=== PATIENT | male | born 1950 | race African-American/Black ===

== ENCOUNTER 2016-03-27 23:00 | Inpatient (IN) | payer MEDICAID ==
[~2016-03-27] VITALS: Ht 188 cm; Wt 121.6 kg
[2016-03-28] MEDS ORDERED: DEXTROSE 50% SYRINGE 50 ML IV ONE (00:40)
[2016-03-28] MEDS ORDERED: DEXTROSE (50%) 50ML SYRG IV ONE ×2 (00:45→03:00)
[2016-03-28 01:21] LABS: Basophils # (auto) 0 uL; Basophils % (auto) 0.6 % (0.0-2.0); DEFINITIVE VIEW TRANSMISSION; Eosinophils # (auto) 0 uL; Eosinophils % (auto) 0.3 % (0.0-7.0); Hemoglobin 10.3 g/dL (13.5-17.5); Lymphocytes # (auto) 0.5 uL; Lymphocytes % (auto) 7.3 % (10.0-50.0); Mean Corpuscular Hemoglobin 29.6 pg (28.0-32.0); Mean Corpuscular Hgb Conc. 32.2 g/dL (32.0-36.0); Mean Corpuscular Volume 91.8 fL (80.0-100.0); Mean Platelet Volume 7.6 fL (7.4-10.4); Monocytes # (auto) 0.6 uL; Monocytes % (auto) 9.1 % (0.0-12.0); Neutrophils # (auto) 5.6 uL; Neutrophils % (auto) 82.7 % (37.0-80.0); Platelet Count (auto) 147 10^3/uL (140-450); Red Cell Distribution Width 19.9 % (11.6-16.0); White Blood Cell 6.7 10^3/uL (4.4-10.8)
[2016-03-28 01:45] LABS: Prothrombin Time 47.3 sec (9.37-12.3)
[2016-03-28 01:46] LABS: Albumin 2.9 g/dL (3.4-5.0); BUN/Creatinine Ratio 15.3; Calcium 8.2 mg/dL (8.5-10.1); Potassium 3.3 mmol/L (3.5-5.1)
[2016-03-28 01:47] LABS: INR 4.59 (0.9-1.15)
[2016-03-28 01:49] LABS: Bilirubin, Total 0.6 mg/dL (0.2-1.0); Total Protein 6.6 g/dL (6.4-8.2)
[2016-03-28 02:50] LABS: Urine Bilirubin Negative (Negative); Urine Blood Negative /uL (Negative); Urine Color Yellow (Yellow); Urine Glucose Normal (Normal); Urine Hyaline Cast MANY /lpf (0 - 2); Urine Ketone Negative (Negative); Urine Nitrite Negative (Negative); Urine RBC 1 /hpf (0 - 3); Urine Urobilinogen Normal (Negative); Urine pH 5.5 (5.0-8.0)
[2016-03-28] MEDS ORDERED: HYDROcodone-ACET 10/325MG TAB PO ONE ×2 (03:30→08:45)
[2016-03-28 03:49] LABS: B-Type Natriuretic Peptide 497.25 pg/mL (0-100); Temperature: 22.7 C (20.0-25.0)
[2016-03-28] MEDS ORDERED: OXYMETAZOLINE HCL 0.05 % NASAL SPRAY 15ML ONE (05:15)
[2016-03-28] MEDS ORDERED: ASPI81CH43 PO (08:26)
[2016-03-28] MEDS ORDERED: SIMV10TA84 PO (08:26)
[2016-03-28] MEDS ORDERED: WARF10TA PO (08:26)
[2016-03-28] MEDS ORDERED: BENA10TA3 PO (08:26)
[2016-03-28] MEDS ORDERED: CHOL20007 PO (08:27)
[2016-03-28] MEDS ORDERED: GLIP-115 PO (08:27)
[2016-03-28] MEDS ORDERED: DOCU100T15 PO (08:27)
[2016-03-28] MEDS ORDERED: FURO80TA PO (08:29)
[2016-03-28] MEDS ORDERED: TEMA30CA PO (08:29)
[2016-03-28] MEDS ORDERED: OXY10CRT PO (08:29)
[2016-03-28] MEDS ORDERED: CARV3.1240 PO (08:29)
[2016-03-28] MEDS ORDERED: PROMETHAZINE HCL 25 MG/ML 1ML IV PRN (08:30)
[2016-03-28] MEDS ORDERED: LACTULOSE 20Gm/30ML SOLN PO PRN (08:30)
[2016-03-28] MEDS ORDERED: ALLO300T2 PO (08:30)
[2016-03-28] MEDS ORDERED: ACETAMINOPHEN 500 MG TAB PO PRN (08:30)
[2016-03-28] MEDS ORDERED: DEXTROSE (50%) 50ML SYRG IV PRN (08:30)
[2016-03-28] MEDS ORDERED: LORazepam 0.5 MG TAB PO PRN (08:30)
[2016-03-28] MEDS ORDERED: METF-314 PO (08:30)
[2016-03-28] MEDS ORDERED: NITROGLYCERIN 0.4 MG SL TAB SL PRN (08:30)
[2016-03-28] MEDS ORDERED: PHYTONADIONE ORAL Susp 10 mg/10ml PO ONE (08:30)
[2016-03-28] MEDS ORDERED: MORPHINE SULF INJ 2 MG/ML SYRINGE 1ML IV PRN (08:30)
[2016-03-28] MEDS: DOCUSATE SOD 100 MG CAP PO SCH ×2 (10:00→22:23)
[2016-03-28] MEDS: CARVEDILOL 3.125 MG TAB PO SCH ×2 (10:00→22:24)
[2016-03-28] MEDS: BENAZEPRIL HCL 10 MG TAB PO SCH (10:01)
[2016-03-28] MEDS: PANTOPRAZOLE 40 MG TAB PO SCH (10:01)
[2016-03-28] MEDS: FUROSEMIDE 40 MG TAB PO SCH ×2 (10:01→17:57)
[2016-03-28] MEDS: NITROGLYCERIN 0.2MG/HR TOPICAL PATCH TD SCH (10:02)
[2016-03-28] MEDS: ALLOPURINOL 300 MG TAB PO SCH (10:02)
[2016-03-28] MEDS ORDERED: POTASSIUM CHL 20 Meq TABLET PO ONE (10:45)
[2016-03-28] MEDS: ACCU-CHEK COMFORT CURVE STRIP VI SCH ×3 (11:36→22:24)
[2016-03-28] MEDS: glipiZIDE 5 MG TAB PO SCH ×2 (11:42→17:57)
[2016-03-28] MEDS: InsuLIN REG 1unit/0.01ml Soln (100units/ml) SC SCH ×3 (11:42→22:00)
[2016-03-28 12:01] LABS: Hematocrit 32.9 % (41.0-53.0); Hemoglobin 10.1 g/dL (13.5-17.5)
[2016-03-28] MEDS: MORPHINE SULF INJ 2 MG/ML SYRINGE 1ML IV PRN ×2 (16:30→20:29)
[2016-03-28 17:12] VITALS: BP 129/71
[2016-03-28 18:35] LABS: Hematocrit 34.1 % (41.0-53.0); Hemoglobin 10.4 g/dL (13.5-17.5)
[2016-03-28] MEDS: OXYCODONE HCL 5MG TAB PO PRN (21:29)
[2016-03-28] MEDS: PRAVASTATIN SODIUM 20 MG TAB PO SCH (22:23)
[2016-03-28] MEDS: TEMAZEPAM 15 MG CAP PO PRN (22:24)
[2016-03-28 22:42] VITALS: BP 131/78
[2016-03-29] MEDS: MORPHINE SULF INJ 2 MG/ML SYRINGE 1ML IV PRN ×5 (00:40→20:58)
[2016-03-29 01:14] LABS: Hemoglobin 10.1 g/dL (13.5-17.5)
[2016-03-29 05:37] VITALS: BP 159/91
[2016-03-29] MEDS: FUROSEMIDE 40 MG TAB PO SCH ×2 (06:09→17:54)
[2016-03-29 06:12] LABS: Basophils # (auto) 0 uL; Basophils % (auto) 0.6 % (0.0-2.0); DEFINITIVE VIEW TRANSMISSION; Eosinophils # (auto) 0 uL; Eosinophils % (auto) 0.3 % (0.0-7.0); Hematocrit 33.4 % (41.0-53.0); Hemoglobin 10.2 g/dL (13.5-17.5); Lymphocytes # (auto) 0.6 uL; Lymphocytes % (auto) 7.2 % (10.0-50.0); Mean Corpuscular Hemoglobin 28.3 pg (28.0-32.0); Mean Corpuscular Hgb Conc. 30.6 g/dL (32.0-36.0); Mean Corpuscular Volume 92.3 fL (80.0-100.0); Mean Platelet Volume 8.6 fL (7.4-10.4); Monocytes # (auto) 0.9 uL; Monocytes % (auto) 10.2 % (0.0-12.0); Neutrophils % (auto) 81.7 % (37.0-80.0); Platelet Count (auto) 227 10^3/uL (140-450); White Blood Cell 8.6 10^3/uL (4.4-10.8)
[2016-03-29 06:31] LABS: Partial Thromboplastin Time 40.8 sec (22.64-33.71)
[2016-03-29 06:36] LABS: Albumin 3.3 g/dL (3.4-5.0); BUN/Creatinine Ratio 18.6; Bilirubin, Total 1.1 mg/dL (0.2-1.0); Calcium 8.8 mg/dL (8.5-10.1); Potassium 4.1 mmol/L (3.5-5.1); Total Protein 7.8 g/dL (6.4-8.2)
[2016-03-29 06:37] LABS: INR 2.01 (0.9-1.15); Prothrombin Time 20.7 sec (9.37-12.3)
[2016-03-29] MEDS: glipiZIDE 5 MG TAB PO SCH ×2 (06:47→17:54)
[2016-03-29] MEDS: ACCU-CHEK COMFORT CURVE STRIP VI SCH ×4 (06:47→21:29)
[2016-03-29] MEDS: InsuLIN REG 1unit/0.01ml Soln (100units/ml) SC SCH ×4 (06:51→21:29)
[2016-03-29 06:53] LABS: Red Cell Distribution Width 21.8 % (11.6-16.0)
[2016-03-29 07:14] LABS: Temperature: 21.2 C (20.0-25.0)
[2016-03-29 07:30] LABS: Platelet Estimate Adequate
[2016-03-29 07:31] LABS: Anisocytosis Slight; Ovalocytes FEW
[2016-03-29 08:59] VITALS: BP 107/58
[2016-03-29] MEDS: ALLOPURINOL 300 MG TAB PO SCH (10:18)
[2016-03-29] MEDS: DOCUSATE SOD 100 MG CAP PO SCH ×2 (10:18→21:28)
[2016-03-29] MEDS: NITROGLYCERIN 0.2MG/HR TOPICAL PATCH TD SCH (10:18)
[2016-03-29] MEDS: PANTOPRAZOLE 40 MG TAB PO SCH (10:18)
[2016-03-29] MEDS: CARVEDILOL 3.125 MG TAB PO SCH ×2 (10:19→21:28)
[2016-03-29] MEDS: BENAZEPRIL HCL 10 MG TAB PO SCH (10:19)
[2016-03-29 12:48] VITALS: BP 123/93
[2016-03-29 16:46] VITALS: BP 115/78
[2016-03-29] MEDS: PRO-STAT 64 30ML PO SCH (18:00)
[2016-03-29] MEDS: MULTIPLE VITAMINS W/ MINERALS TAB PO SCH (18:18)
[2016-03-29] MEDS: PRAVASTATIN SODIUM 20 MG TAB PO SCH (21:28)
[2016-03-29] MEDS: ASCORBIC ACID 500 MG TAB PO SCH (21:29)
[2016-03-29] MEDS: TEMAZEPAM 15 MG CAP PO PRN (21:30)
[2016-03-29 22:00] VITALS: BP 117/67
[2016-03-30] MEDS: MORPHINE SULF INJ 2 MG/ML SYRINGE 1ML IV PRN ×4 (04:10→20:49)
[2016-03-30 05:00] VITALS: BP 113/62
[2016-03-30] MEDS: FUROSEMIDE 40 MG TAB PO SCH ×2 (06:14→18:13)
[2016-03-30] MEDS: glipiZIDE 5 MG TAB PO SCH ×2 (06:15→18:12)
[2016-03-30] MEDS: ACCU-CHEK COMFORT CURVE STRIP VI SCH ×4 (06:15→22:40)
[2016-03-30] MEDS: InsuLIN REG 1unit/0.01ml Soln (100units/ml) SC SCH ×4 (06:15→22:00)
[2016-03-30 06:22] LABS: Basophils # (auto) 0 uL; Basophils % (auto) 0.3 % (0.0-2.0); DEFINITIVE VIEW TRANSMISSION; Eosinophils # (auto) 0 uL; Hematocrit 31.2 % (41.0-53.0); Hemoglobin 9.6 g/dL (13.5-17.5); Lymphocytes # (auto) 0.3 uL; Lymphocytes % (auto) 5.1 % (10.0-50.0); Mean Corpuscular Hgb Conc. 30.7 g/dL (32.0-36.0); Mean Corpuscular Volume 91.1 fL (80.0-100.0); Mean Platelet Volume 8.1 fL (7.4-10.4); Monocytes # (auto) 0.9 uL; Neutrophils # (auto) 5.3 uL; Neutrophils % (auto) 80.6 % (37.0-80.0); Platelet Count (auto) 196 10^3/uL (140-450); White Blood Cell 6.5 10^3/uL (4.4-10.8)
[2016-03-30 06:35] LABS: INR 1.53 (0.9-1.15); Prothrombin Time 15.8 sec (9.37-12.3)
[2016-03-30 06:38] LABS: Red Cell Distribution Width 21.4 % (11.6-16.0)
[2016-03-30 06:45] LABS: BUN/Creatinine Ratio 18.6; Bilirubin, Total 1.3 mg/dL (0.2-1.0); Calcium 8.2 mg/dL (8.5-10.1); Potassium 3.8 mmol/L (3.5-5.1); Total Protein 6.9 g/dL (6.4-8.2)
[2016-03-30] MEDS: PRO-STAT 64 30ML PO SCH ×2 (08:00→18:13)
[2016-03-30] MEDS ORDERED: MILK OF MAGNESIA 30ML SUSP PO ONE (08:30)
[2016-03-30] MEDS ORDERED: MAGNESIUM CITRATE SOLUTION 300 ML BTL PO ONE (08:45)
[2016-03-30 09:00] VITALS: BP 99/57
[2016-03-30] MEDS: MULTIPLE VITAMINS W/ MINERALS TAB PO SCH (09:18)
[2016-03-30] MEDS: PANTOPRAZOLE 40 MG TAB PO SCH (09:18)
[2016-03-30] MEDS: DOCUSATE SOD 100 MG CAP PO SCH ×2 (09:18→22:37)
[2016-03-30] MEDS: ASCORBIC ACID 500 MG TAB PO SCH ×2 (09:18→22:38)
[2016-03-30] MEDS: ALLOPURINOL 300 MG TAB PO SCH (09:18)
[2016-03-30 09:39] LABS: Platelet Estimate Adequate
[2016-03-30 09:40] LABS: Anisocytosis Slight; Ovalocytes FEW; Stomatocytes Few
[2016-03-30] MEDS: NITROGLYCERIN 0.2MG/HR TOPICAL PATCH TD SCH (10:00)
[2016-03-30 13:00] VITALS: BP 129/77
[2016-03-30] MEDS: BENAZEPRIL HCL 10 MG TAB PO SCH (16:08)
[2016-03-30] MEDS: CARVEDILOL 3.125 MG TAB PO SCH ×2 (16:08→22:37)
[2016-03-30 17:00] VITALS: BP 121/81
[2016-03-30] MEDS ORDERED: WARFARIN SODIUM 10 MG TAB PO ONE (17:00)
[2016-03-30 20:00] VITALS: BP 111/58
[2016-03-30 22:00] VITALS: BP 111/58
[2016-03-30] MEDS ORDERED: MILK OF MAGNESIA 30ML SUSP PO SCH (22:00)
[2016-03-30] MEDS: TEMAZEPAM 15 MG CAP PO PRN (22:36)
[2016-03-30] MEDS: PRAVASTATIN SODIUM 20 MG TAB PO SCH (22:36)
[2016-03-30] MEDS: OXYCODONE HCL 5MG TAB PO PRN (22:37)
[2016-03-31 05:00] VITALS: BP 111/56
[2016-03-31 05:54] LABS: Basophils # (auto) 0 uL; Basophils % (auto) 0.2 % (0.0-2.0); DEFINITIVE VIEW TRANSMISSION; Eosinophils # (auto) 0 uL; Eosinophils % (auto) 0.1 % (0.0-7.0); Hematocrit 32.5 % (41.0-53.0); Lymphocytes # (auto) 0.7 uL; Lymphocytes % (auto) 6.7 % (10.0-50.0); Mean Corpuscular Hemoglobin 28.5 pg (28.0-32.0); Mean Corpuscular Hgb Conc. 30.9 g/dL (32.0-36.0); Mean Corpuscular Volume 92.5 fL (80.0-100.0); Mean Platelet Volume 7.9 fL (7.4-10.4); Monocytes # (auto) 1.4 uL; Monocytes % (auto) 13.6 % (0.0-12.0); Neutrophils # (auto) 8.1 uL; Neutrophils % (auto) 79.4 % (37.0-80.0); Platelet Count (auto) 195 10^3/uL (140-450); White Blood Cell 10.3 10^3/uL (4.4-10.8)
[2016-03-31 05:56] LABS: Red Cell Distribution Width 21.2 % (11.6-16.0)
[2016-03-31 06:02] LABS: INR 1.54 (0.9-1.15); Prothrombin Time 15.9 sec (9.37-12.3)
[2016-03-31] MEDS: glipiZIDE 5 MG TAB PO SCH ×2 (06:51→18:27)
[2016-03-31] MEDS: ACCU-CHEK COMFORT CURVE STRIP VI SCH ×4 (06:51→22:00)
[2016-03-31] MEDS: FUROSEMIDE 40 MG TAB PO SCH ×2 (06:51→18:28)
[2016-03-31] MEDS: InsuLIN REG 1unit/0.01ml Soln (100units/ml) SC SCH ×4 (06:52→22:00)
[2016-03-31] MEDS: MORPHINE SULF INJ 2 MG/ML SYRINGE 1ML IV PRN ×4 (06:59→22:34)
[2016-03-31] MEDS: PRO-STAT 64 30ML PO SCH ×2 (08:00→18:00)
[2016-03-31 09:00] VITALS: BP 94/56
[2016-03-31] MEDS ORDERED: cefTRIAXone 1GM/50ML D5W 50 ML IV ONE (09:15)
[2016-03-31] MEDS: DOCUSATE SOD 100 MG CAP PO SCH ×2 (09:16→22:13)
[2016-03-31] MEDS: MULTIPLE VITAMINS W/ MINERALS TAB PO SCH (09:16)
[2016-03-31] MEDS: ALLOPURINOL 300 MG TAB PO SCH (09:17)
[2016-03-31] MEDS: ASCORBIC ACID 500 MG TAB PO SCH ×2 (09:17→22:10)
[2016-03-31 09:22] LABS: Anisocytosis Slight; Platelet Estimate Adequate
[2016-03-31] MEDS: OXYCODONE HCL 5MG TAB PO PRN ×2 (09:36→20:20)
[2016-03-31] MEDS: CARVEDILOL 3.125 MG TAB PO SCH ×2 (10:00→22:12)
[2016-03-31] MEDS: BENAZEPRIL HCL 10 MG TAB PO SCH (10:00)
[2016-03-31] MEDS: NITROGLYCERIN 0.2MG/HR TOPICAL PATCH TD SCH (10:00)
[2016-03-31] MEDS ORDERED: NEOMYCIN-BACITRACIN-POLYM 15GM TOP OINT TOP SCH (12:00)
[2016-03-31 13:00] VITALS: BP 81/52
[2016-03-31] MEDS: CLINDAMYCIN 300MG IV 50 ML IV SCH ×2 (13:54→22:10)
[2016-03-31] MEDS: PANTOPRAZOLE 40 MG TAB PO SCH (13:55)
[2016-03-31 17:00] VITALS: BP 98/70
[2016-03-31] MEDS ORDERED: WARFARIN SODIUM 10 MG TAB PO ONE (17:00)
[2016-03-31 22:00] VITALS: BP 114/60
[2016-03-31] MEDS: PRAVASTATIN SODIUM 20 MG TAB PO SCH (22:10)
[2016-03-31] MEDS: TEMAZEPAM 15 MG CAP PO PRN (22:11)
[2016-04-01] MEDS: MORPHINE SULF INJ 2 MG/ML SYRINGE 1ML IV PRN ×2 (02:28→06:30)
[2016-04-01 05:00] VITALS: BP 125/63
[2016-04-01 05:44] LABS: Calcium 7.9 mg/dL (8.5-10.1); Potassium 4.1 mmol/L (3.5-5.1)
[2016-04-01 05:46] LABS: BUN/Creatinine Ratio 20.7
[2016-04-01 05:49] LABS: Bilirubin, Total 1.1 mg/dL (0.2-1.0); Partial Thromboplastin Time 40.4 sec (22.64-33.71); Total Protein 7.5 g/dL (6.4-8.2)
[2016-04-01] MEDS: FUROSEMIDE 40 MG TAB PO SCH (06:09)
[2016-04-01] MEDS: CLINDAMYCIN 300MG IV 50 ML IV SCH (06:09)
[2016-04-01 06:10] LABS: INR 1.6 (0.9-1.15); Prothrombin Time 16.5 sec (9.37-12.3)
[2016-04-01] MEDS: ACCU-CHEK COMFORT CURVE STRIP VI SCH ×2 (06:45→11:30)
[2016-04-01] MEDS: glipiZIDE 5 MG TAB PO SCH (06:45)
[2016-04-01] MEDS: InsuLIN REG 1unit/0.01ml Soln (100units/ml) SC SCH ×2 (06:46→11:30)
[2016-04-01] MEDS: PRO-STAT 64 30ML PO SCH (08:00)
[2016-04-01 09:00] VITALS: BP 141/88
[2016-04-01] MEDS ORDERED: cefTRIAXone 1GM/50ML D5W 50 ML IV SCH (09:00)
[2016-04-01] MEDS: ASCORBIC ACID 500 MG TAB PO SCH (09:53)
[2016-04-01] MEDS: BENAZEPRIL HCL 10 MG TAB PO SCH (09:53)
[2016-04-01] MEDS: CARVEDILOL 3.125 MG TAB PO SCH (09:54)
[2016-04-01] MEDS: DOCUSATE SOD 100 MG CAP PO SCH (09:54)
[2016-04-01] MEDS: ALLOPURINOL 300 MG TAB PO SCH (09:54)
[2016-04-01] MEDS: PANTOPRAZOLE 40 MG TAB PO SCH (09:54)
[2016-04-01] MEDS: MULTIPLE VITAMINS W/ MINERALS TAB PO SCH (09:54)
[2016-04-01] MEDS: NITROGLYCERIN 0.2MG/HR TOPICAL PATCH TD SCH (09:55)
[2016-04-01] MEDS ORDERED: WARFARIN SODIUM 10 MG TAB PO ONE (17:00)
== END 2016-04-01 12:01 | disposition home or self-care (01) | DRG 115 ==
LOC: EDBD 23:00 → ER 23:00 → TELE 23:01 → TELE-E-ADS 03-28 15:07 → TELE-CENTR 03-28 16:22
PROVIDERS: ADMIT Internal Medicine; ATTEND Internal Medicine
PROC: 2Y41X5Z Packing of Nasal Region using Packing Material (ICD-10-PCS; principal; 2016-03-28)
DX: R04.0 Epistaxis (principal); J96.10 Chronic respiratory failure, unspecified whether with hypoxia or hypercapnia; E11.621 Type 2 diabetes mellitus with foot ulcer; I11.0 Hypertensive heart disease with heart failure; I50.9 Heart failure, unspecified; L97.509 Non-pressure chronic ulcer of other part of unspecified foot with unspecified severity; I48.91 Unspecified atrial fibrillation; J44.9 Chronic obstructive pulmonary disease, unspecified; R79.1 Abnormal coagulation profile; E87.6 Hypokalemia; I25.10 Atherosclerotic heart disease of native coronary artery without angina pectoris; F17.210 Nicotine dependence, cigarettes, uncomplicated; K59.00 Constipation, unspecified; Z98.890 Other specified postprocedural states; Z82.3 Family history of stroke; Z83.3 Family history of diabetes mellitus; Z95.1 Presence of aortocoronary bypass graft; Z79.01 Long term (current) use of anticoagulants; Z79.899 Other long term (current) drug therapy
CPT/HCPCS: 36415; 70450; 71010; 80053; 80061; 81001; 82550; 82962; 83036; 83735; 83880; 84443; 84484; 85014; 85018; 85025; 85045; 85610; 85652; 85730; 86850; 86900; 86901; 87077; 87081; 87186; 87205; 93005; 96374; 96375; J0696; J1815; J3490

== ENCOUNTER 2017-04-23 15:33 | Inpatient (IN) | payer MEDICARE, MEDICAID ==
[~2017-04-23] VITALS: Ht 193 cm; Wt 103.7 kg
[~2017-04-23 15:33] MED LIST: ALLO300T2 PO; AMI200T PO; ASPI81CH43 PO; BUDE0.5S NEB; CARV3.1240 PO; CHOL20007 PO; CYCL5TAB PO; ESOM1CAP12 PO; EZET1TAB4 PO; FLUT50SP13; FURO80TA PO; GLIP-115 PO; GLUCINJ IJ; LORA-653 PO; METF-371 PO; OXY10CRT PO; SENN8.6C PO; SIMV10TA84 PO
[2017-04-23 17:37] LABS: Basophils # (auto) 0.1 uL; Basophils % (auto) 1.4 % (0.0-2.0); Eosinophils # (auto) 0.1 uL; Eosinophils % (auto) 1.1 % (0.0-7.0); Hematocrit 27.3 % (41.0-53.0); Hemoglobin 8.9 g/dL (13.5-17.5); Lymphocytes # (auto) 0.7 uL; Lymphocytes % (auto) 8.4 % (10.0-50.0); Mean Corpuscular Hemoglobin 28.7 pg (28.0-32.0); Mean Corpuscular Hgb Conc. 32.7 g/dL (32.0-36.0); Mean Corpuscular Volume 87.8 fL (80.0-100.0); Monocytes # (auto) 0.6 uL; Monocytes % (auto) 7.4 % (0.0-12.0); Neutrophils # (auto) 7.2 uL; Neutrophils % (auto) 81.7 % (37.0-80.0); Platelet Count (auto) 220 10^3/uL (140-450); White Blood Cell 8.8 10^3/uL (4.4-10.8)
[2017-04-23 17:38] LABS: INR 1.2 (0.9-1.15); Partial Thromboplastin Time 33.2 sec (22.64-33.71); Prothrombin Time 13.1 sec (9.37-12.3)
[2017-04-23 17:48] LABS: Albumin 2.6 g/dL (3.4-5.0); BUN/Creatinine Ratio 30.9; Calcium 8.4 mg/dL (8.5-10.1); Magnesium 2.3 mg/dL (1.6-2.6); Potassium 4.9 mmol/L (3.5-5.1)
[2017-04-23 17:50] LABS: Bilirubin, Total 0.5 mg/dL (0.2-1.0); Total Protein 8.3 g/dL (6.4-8.2)
[2017-04-23 17:53] LABS: Red Cell Distribution Width 21.4 % (11.8-14.3)
[2017-04-23] MEDS ORDERED: HYDROcodone-ACET 10/325MG TAB PO ONE (19:15)
[2017-04-23] MEDS ORDERED: MORPHINE SULFATE 4 MG/ML SYR/VIAL IV PRN (21:30)
[2017-04-23] MEDS ORDERED: NITROGLYCERIN 0.4 MG SL TAB SL PRN (21:30)
[2017-04-23] MEDS ORDERED: TEMAZEPAM 15 MG CAP PO ONE (22:00)
[2017-04-23 22:10] VITALS: BP 98/57
[2017-04-23 23:20] LABS: Urine Bacteria NONE SEEN /hpf (None Seen); Urine Blood Negative /uL (Negative); Urine Specific Gravity 1.014 (1.001-1.035); Urine WBC 1 /hpf (0 - 3)
[2017-04-24] MEDS ORDERED: DEXTROSE (50%) 50ML SYRG IV PRN (03:45)
[2017-04-24 05:00] VITALS: BP 105/60
[2017-04-24 05:49] LABS: Basophils # (auto) 0.1 uL; Eosinophils # (auto) 0.1 uL; Hemoglobin 7.9 g/dL (13.5-17.5); Lymphocytes # (auto) 0.9 uL; Mean Corpuscular Volume 87.6 fL (80.0-100.0); Neutrophils # (auto) 5.3 uL
[2017-04-24 05:53] LABS: Basophils % (auto) 0.8 % (0.0-2.0); Hematocrit 23.4 % (41.0-53.0); Lymphocytes % (auto) 12.1 % (10.0-50.0); Mean Corpuscular Hemoglobin 29.7 pg (28.0-32.0); Mean Corpuscular Hgb Conc. 33.9 g/dL (32.0-36.0); Monocytes # (auto) 0.6 uL; Monocytes % (auto) 9.2 % (0.0-12.0); Neutrophils % (auto) 75.9 % (37.0-80.0); Nucleated Red Blood Cells % 0.1 %; Platelet Count (auto) 188 10^3/uL (140-450); Red Blood Cells 2.67 10^6/uL (4.5-5.90)
[2017-04-24] MEDS: oxyCODONE ER 10 MG TAB PO PRN ×4 (06:04→21:01)
[2017-04-24] MEDS: ACCU-CHEK COMFORT CURVE STRIP VI SCH ×4 (06:09→22:36)
[2017-04-24] MEDS: InsuLIN REG 1unit/0.01ml Soln (100units/ml) SC SCH ×4 (06:10→22:00)
[2017-04-24 06:15] LABS: Red Cell Distribution Width 20.8 % (11.8-14.3)
[2017-04-24 06:37] LABS: BUN/Creatinine Ratio 32.5; Calcium 8.4 mg/dL (8.5-10.1); Potassium 4.3 mmol/L (3.5-5.1)
[2017-04-24 08:00] VITALS: BP 109/62
[2017-04-24 09:00] VITALS: BP 109/62
[2017-04-24] MEDS: ALLOPURINOL 300 MG TAB PO SCH (09:45)
[2017-04-24] MEDS: SENNA 8.6 MG TAB PO SCH ×2 (09:45→22:37)
[2017-04-24] MEDS: AMIODARONE HCL 200 MG TAB PO SCH (09:45)
[2017-04-24] MEDS: CHOLECALCIFEROL (VITD3) 1,000 UNIT TAB PO SCH (09:45)
[2017-04-24] MEDS: CYCLOBENZAPRINE HCL 10 MG TAB PO SCH ×2 (09:46→23:09)
[2017-04-24] MEDS: CARVEDILOL 3.125 MG TAB PO SCH ×2 (09:47→22:00)
[2017-04-24] MEDS: FUROSEMIDE 20 MG TAB PO SCH (09:47)
[2017-04-24] MEDS: glipiZIDE 5 MG TAB PO SCH ×2 (09:48→22:00)
[2017-04-24] MEDS: LORazepam 0.5 MG TAB PO SCH ×2 (09:48→23:09)
[2017-04-24] MEDS: PANTOPRAZOLE 40 MG TAB PO SCH (09:48)
[2017-04-24] MEDS: FLUTICASONE PROP NASAL SPR 0.05 % (50MCG) 16GM SCH (09:49)
[2017-04-24] MEDS ORDERED: FUROSEMIDE 40 MG TAB PO SCH (10:00)
[2017-04-24] MEDS: BUDESONIDE (INHALATION) 0.5 MG/2 ML NEB NEB SCH ×2 (10:22→18:34)
[2017-04-24 13:00] VITALS: BP 108/65
[2017-04-24 16:39] VITALS: BP 94/55
[2017-04-24] MEDS ORDERED: PATIENTS OWN MEDICATION (Simvastatin 1 TAB) PO SCH (18:00)
[2017-04-24 22:00] VITALS: BP 91/52
[2017-04-24] MEDS: EZETIMIBE PO SCH (22:00)
[2017-04-24] MEDS: SIMVASTATIN PO SCH (22:00)
[2017-04-24] MEDS ORDERED: DOCU-94 PO (23:50)
[2017-04-24] MEDS ORDERED: FURO40TA PO (23:50)
[2017-04-24] MEDS ORDERED: CARI-277 PO (23:50)
[2017-04-24] MEDS ORDERED: TEMA15CA91 PO (23:50)
[2017-04-24] MEDS ORDERED: NITR0.4S29 SL (23:50)
[2017-04-24] MEDS ORDERED: OMEP20CA74 PO (23:50)
[2017-04-24] MEDS ORDERED: IPRA1SOL3 IN (23:50)
[2017-04-24] MEDS ORDERED: SPIR25TA88 PO (23:50)
[2017-04-24] MEDS ORDERED: HYDR-4683 PO (23:50)
[2017-04-24] MEDS ORDERED: TAMS0.4C36 PO (23:50)
[2017-04-24] MEDS ORDERED: FLUT500M2 INH (23:50)
[2017-04-24] MEDS ORDERED: MAGNSUS71 PO (23:50)
[2017-04-25 01:43] VITALS: BP 120/59
[2017-04-25] MEDS: oxyCODONE ER 10 MG TAB PO PRN ×3 (04:55→22:30)
[2017-04-25 05:00] VITALS: BP 105/57
[2017-04-25] MEDS: InsuLIN REG 1unit/0.01ml Soln (100units/ml) SC SCH ×4 (06:39→22:00)
[2017-04-25] MEDS: ACCU-CHEK COMFORT CURVE STRIP VI SCH ×4 (06:39→22:00)
[2017-04-25 09:00] VITALS: BP 103/56
[2017-04-25] MEDS: FLUTICASONE PROP NASAL SPR 0.05 % (50MCG) 16GM SCH (09:49)
[2017-04-25] MEDS: PANTOPRAZOLE 40 MG TAB PO SCH (09:50)
[2017-04-25] MEDS: ALLOPURINOL 300 MG TAB PO SCH (09:50)
[2017-04-25] MEDS: SENNA 8.6 MG TAB PO SCH ×2 (09:50→22:00)
[2017-04-25] MEDS: CYCLOBENZAPRINE HCL 10 MG TAB PO SCH ×2 (09:50→22:00)
[2017-04-25] MEDS: glipiZIDE 5 MG TAB PO SCH ×2 (09:50→22:00)
[2017-04-25] MEDS: CHOLECALCIFEROL (VITD3) 1,000 UNIT TAB PO SCH (09:50)
[2017-04-25] MEDS: LORazepam 0.5 MG TAB PO SCH ×2 (09:51→22:00)
[2017-04-25] MEDS: AMIODARONE HCL 200 MG TAB PO SCH (09:51)
[2017-04-25] MEDS: FUROSEMIDE 20 MG TAB PO SCH (09:52)
[2017-04-25] MEDS: CARVEDILOL 3.125 MG TAB PO SCH ×2 (09:53→22:00)
[2017-04-25] MEDS: BUDESONIDE (INHALATION) 0.5 MG/2 ML NEB NEB SCH ×2 (10:07→21:55)
[2017-04-25 13:00] VITALS: BP 101/64
[2017-04-25 16:48] VITALS: BP 121/80
[2017-04-25] MEDS: CARISOPRODOL 350 MG TAB PO PRN (18:50)
[2017-04-25 22:00] VITALS: BP 105/65
[2017-04-25] MEDS: EZETIMIBE PO SCH (22:00)
[2017-04-25] MEDS: SIMVASTATIN PO SCH (22:00)
[2017-04-26 05:00] VITALS: BP 108/64
[2017-04-26 06:27] LABS: Eosinophils # (auto) 0.2 uL; Eosinophils % (auto) 1.9 % (0.0-7.0); Hemoglobin 7.9 g/dL (13.5-17.5); Lymphocytes # (auto) 0.9 uL; Mean Corpuscular Volume 87.8 fL (80.0-100.0); Monocytes # (auto) 0.7 uL; Nucleated Red Blood Cells % 0.1 %
[2017-04-26 06:29] LABS: Albumin 2.7 g/dL (3.4-5.0); BUN/Creatinine Ratio 25.6; Calcium 8.6 mg/dL (8.5-10.1); Potassium 4.3 mmol/L (3.5-5.1)
[2017-04-26 06:30] LABS: Basophils # (auto) 0.1 uL; Basophils % (auto) 0.6 % (0.0-2.0); Hematocrit 23.3 % (41.0-53.0); Lymphocytes % (auto) 9.6 % (10.0-50.0); Mean Corpuscular Hemoglobin 29.7 pg (28.0-32.0); Mean Corpuscular Hgb Conc. 33.8 g/dL (32.0-36.0); Neutrophils # (auto) 7.1 uL; Neutrophils % (auto) 79.9 % (37.0-80.0); Platelet Count (auto) 179 10^3/uL (140-450); Red Blood Cells 2.65 10^6/uL (4.5-5.90); White Blood Cell 8.9 10^3/uL (4.4-10.8)
[2017-04-26 06:31] LABS: Bilirubin, Total 0.5 mg/dL (0.2-1.0); Total Protein 8.1 g/dL (6.4-8.2)
[2017-04-26] MEDS: ACCU-CHEK COMFORT CURVE STRIP VI SCH ×4 (06:35→22:00)
[2017-04-26] MEDS: InsuLIN REG 1unit/0.01ml Soln (100units/ml) SC SCH ×4 (06:35→22:00)
[2017-04-26 09:00] VITALS: BP 107/67
[2017-04-26] MEDS: AMIODARONE HCL 200 MG TAB PO SCH (09:41)
[2017-04-26] MEDS: SENNA 8.6 MG TAB PO SCH ×2 (09:41→23:44)
[2017-04-26] MEDS: PANTOPRAZOLE 40 MG TAB PO SCH (09:41)
[2017-04-26] MEDS: ALLOPURINOL 300 MG TAB PO SCH (09:41)
[2017-04-26] MEDS: CYCLOBENZAPRINE HCL 10 MG TAB PO SCH ×2 (09:41→22:00)
[2017-04-26] MEDS: CHOLECALCIFEROL (VITD3) 1,000 UNIT TAB PO SCH (09:41)
[2017-04-26] MEDS: FUROSEMIDE 20 MG TAB PO SCH (09:42)
[2017-04-26] MEDS: LORazepam 0.5 MG TAB PO SCH ×2 (09:42→23:43)
[2017-04-26] MEDS: CARVEDILOL 3.125 MG TAB PO SCH ×2 (09:43→22:00)
[2017-04-26] MEDS: FLUTICASONE PROP NASAL SPR 0.05 % (50MCG) 16GM SCH (09:44)
[2017-04-26] MEDS: glipiZIDE 5 MG TAB PO SCH ×2 (09:44→22:00)
[2017-04-26] MEDS: BUDESONIDE (INHALATION) 0.5 MG/2 ML NEB NEB SCH ×2 (10:12→22:30)
[2017-04-26 13:00] VITALS: BP 112/70
[2017-04-26] MEDS ORDERED: MAGNESIUM CITRATE SOLUTION 300 ML BTL PO ONE (13:00)
[2017-04-26] MEDS: cefTRIAXone 1GM/10ml IVPUSH 10 ML IV SCH (13:29)
[2017-04-26] MEDS: CARISOPRODOL 350 MG TAB PO PRN (16:31)
[2017-04-26] MEDS: oxyCODONE ER 10 MG TAB PO PRN (16:31)
[2017-04-26 17:00] VITALS: BP 93/56
[2017-04-26 22:00] VITALS: BP 113/69
[2017-04-26] MEDS: SIMVASTATIN PO SCH (22:00)
[2017-04-26] MEDS: EZETIMIBE PO SCH (22:00)
[2017-04-27] VITALS (7 sets, daily range): BP systolic 98–110; BP diastolic 59–70
[2017-04-27] MEDS: InsuLIN REG 1unit/0.01ml Soln (100units/ml) SC SCH ×4 (06:47→22:00)
[2017-04-27] MEDS: ACCU-CHEK COMFORT CURVE STRIP VI SCH ×4 (06:47→22:03)
[2017-04-27] MEDS: CHOLECALCIFEROL (VITD3) 1,000 UNIT TAB PO SCH (09:35)
[2017-04-27] MEDS: cefTRIAXone 1GM/10ml IVPUSH 10 ML IV SCH (09:35)
[2017-04-27] MEDS: SENNA 8.6 MG TAB PO SCH ×2 (09:35→21:50)
[2017-04-27] MEDS: ALLOPURINOL 300 MG TAB PO SCH (09:35)
[2017-04-27] MEDS: FUROSEMIDE 20 MG TAB PO SCH (09:36)
[2017-04-27] MEDS: oxyCODONE ER 10 MG TAB PO PRN ×3 (09:36→17:34)
[2017-04-27] MEDS: PANTOPRAZOLE 40 MG TAB PO SCH (09:36)
[2017-04-27] MEDS: glipiZIDE 5 MG TAB PO SCH ×2 (09:37→22:02)
[2017-04-27] MEDS: CARISOPRODOL 350 MG TAB PO SCH ×2 (09:37→21:50)
[2017-04-27] MEDS: LORazepam 0.5 MG TAB PO SCH ×2 (09:38→21:49)
[2017-04-27] MEDS: AMIODARONE HCL 200 MG TAB PO SCH (09:38)
[2017-04-27] MEDS: CARVEDILOL 3.125 MG TAB PO SCH ×2 (09:38→21:49)
[2017-04-27] MEDS: FLUTICASONE PROP NASAL SPR 0.05 % (50MCG) 16GM SCH (09:39)
[2017-04-27] MEDS: BUDESONIDE (INHALATION) 0.5 MG/2 ML NEB NEB SCH ×2 (09:41→22:13)
[2017-04-27] MEDS: EZETIMIBE PO SCH (21:48)
[2017-04-27] MEDS: SIMVASTATIN PO SCH (21:48)
[2017-04-27] MEDS: traZODone HCL 50 MG TAB PO SCH (21:49)
[2017-04-27] MEDS: ZOLPIDEM TARTRATE 5 MG TAB PO PRN (21:50)
[2017-04-28 05:00] VITALS: BP 104/67
[2017-04-28] MEDS: InsuLIN REG 1unit/0.01ml Soln (100units/ml) SC SCH ×5 (06:31→21:58)
[2017-04-28] MEDS: ACCU-CHEK COMFORT CURVE STRIP VI SCH ×4 (06:32→21:57)
[2017-04-28 09:11] VITALS: BP 107/67
[2017-04-28] MEDS: FERROUS SULFATE 325 MG TAB PO SCH ×2 (09:58→18:03)
[2017-04-28] MEDS: cefTRIAXone 1GM/10ml IVPUSH 10 ML IV SCH (09:58)
[2017-04-28] MEDS: LORazepam 0.5 MG TAB PO SCH ×2 (10:00→21:40)
[2017-04-28] MEDS: AMIODARONE HCL 200 MG TAB PO SCH (10:00)
[2017-04-28] MEDS: CARVEDILOL 3.125 MG TAB PO SCH ×2 (10:01→21:39)
[2017-04-28] MEDS: glipiZIDE 5 MG TAB PO SCH ×2 (10:03→21:58)
[2017-04-28] MEDS: MILK OF MAGNESIA 30ML SUSP PO SCH ×2 (10:06→21:38)
[2017-04-28] MEDS: FUROSEMIDE 20 MG TAB PO SCH (10:06)
[2017-04-28] MEDS: SENNA 8.6 MG TAB PO SCH ×2 (10:07→21:39)
[2017-04-28] MEDS: PANTOPRAZOLE 40 MG TAB PO SCH (10:07)
[2017-04-28] MEDS: CARISOPRODOL 350 MG TAB PO SCH ×2 (10:07→21:38)
[2017-04-28] MEDS: MULTIPLE VITAMIN TAB PO SCH (10:07)
[2017-04-28] MEDS: CHOLECALCIFEROL (VITD3) 1,000 UNIT TAB PO SCH (10:08)
[2017-04-28] MEDS: ALLOPURINOL 300 MG TAB PO SCH (10:08)
[2017-04-28] MEDS: oxyCODONE ER 10 MG TAB PO PRN ×3 (10:09→21:58)
[2017-04-28] MEDS: BUDESONIDE (INHALATION) 0.5 MG/2 ML NEB NEB SCH ×2 (10:42→18:19)
[2017-04-28 13:00] VITALS: BP 99/61
[2017-04-28] MEDS: FLUTICASONE PROP NASAL SPR 0.05 % (50MCG) 16GM SCH (15:22)
[2017-04-28] MEDS: CARISOPRODOL 350 MG TAB PO PRN (15:23)
[2017-04-28 17:02] VITALS: BP 114/67
[2017-04-28] MEDS: traZODone HCL 50 MG TAB PO SCH (21:40)
[2017-04-28] MEDS: EZETIMIBE PO SCH (22:00)
[2017-04-28] MEDS: SIMVASTATIN PO SCH (22:00)
[2017-04-28 22:26] VITALS: BP 108/68
[2017-04-28] MEDS: ZOLPIDEM TARTRATE 5 MG TAB PO PRN (22:39)
[2017-04-29 04:30] VITALS: BP 111/82
[2017-04-29] MEDS: oxyCODONE ER 10 MG TAB PO PRN (05:38)
[2017-04-29 05:50] LABS: Basophils # (auto) 0 uL; Eosinophils # (auto) 0.1 uL; Monocytes # (auto) 0.6 uL; Neutrophils # (auto) 5.3 uL
[2017-04-29 05:53] LABS: Basophils % (auto) 0.6 % (0.0-2.0); Hematocrit 22.3 % (41.0-53.0); Hemoglobin 7.5 g/dL (13.5-17.5); Lymphocytes # (auto) 0.8 uL; Lymphocytes % (auto) 11.1 % (10.0-50.0); Mean Corpuscular Hemoglobin 29.7 pg (28.0-32.0); Mean Corpuscular Hgb Conc. 33.7 g/dL (32.0-36.0); Mean Corpuscular Volume 88.1 fL (80.0-100.0); Monocytes % (auto) 8.9 % (0.0-12.0); Neutrophils % (auto) 77.4 % (37.0-80.0); Platelet Count (auto) 149 10^3/uL (140-450); Red Blood Cells 2.53 10^6/uL (4.5-5.90); White Blood Cell 6.8 10^3/uL (4.4-10.8)
[2017-04-29] MEDS: ACCU-CHEK COMFORT CURVE STRIP VI SCH ×4 (05:57→22:19)
[2017-04-29 05:58] LABS: Red Cell Distribution Width 20.9 % (11.8-14.3)
[2017-04-29] MEDS: InsuLIN REG 1unit/0.01ml Soln (100units/ml) SC SCH ×4 (05:58→22:00)
[2017-04-29 06:42] LABS: BUN/Creatinine Ratio 22.4; Calcium 8.4 mg/dL (8.5-10.1); Potassium 4.1 mmol/L (3.5-5.1)
[2017-04-29 08:00] VITALS: BP 100/55
[2017-04-29] MEDS: FERROUS SULFATE 325 MG TAB PO SCH ×3 (08:00→17:10)
[2017-04-29 09:00] VITALS: BP_SYST 100; BP_SYST 120; BP_DIAS 55; BP_DIAS 65
[2017-04-29] MEDS: CHOLECALCIFEROL (VITD3) 1,000 UNIT TAB PO SCH (09:51)
[2017-04-29] MEDS: MULTIPLE VITAMIN TAB PO SCH (09:51)
[2017-04-29] MEDS: CARVEDILOL 3.125 MG TAB PO SCH ×2 (09:51→22:16)
[2017-04-29] MEDS: PANTOPRAZOLE 40 MG TAB PO SCH (09:51)
[2017-04-29] MEDS: DOCUSATE SOD 100 MG CAP PO SCH ×2 (09:52→22:15)
[2017-04-29] MEDS: CARISOPRODOL 350 MG TAB PO SCH ×2 (09:52→22:18)
[2017-04-29] MEDS: ALLOPURINOL 300 MG TAB PO SCH (09:52)
[2017-04-29] MEDS: glipiZIDE 5 MG TAB PO SCH ×2 (09:55→22:17)
[2017-04-29] MEDS: MILK OF MAGNESIA 30ML SUSP PO SCH ×2 (09:56→22:17)
[2017-04-29] MEDS: SENNA 8.6 MG TAB PO SCH ×2 (09:56→22:18)
[2017-04-29] MEDS: LORazepam 0.5 MG TAB PO SCH ×2 (09:56→22:15)
[2017-04-29] MEDS: AMIODARONE HCL 200 MG TAB PO SCH (09:56)
[2017-04-29] MEDS: FUROSEMIDE 20 MG TAB PO SCH (09:56)
[2017-04-29] MEDS: cefTRIAXone 1GM/10ml IVPUSH 10 ML IV SCH (09:57)
[2017-04-29] MEDS: FLUTICASONE PROP NASAL SPR 0.05 % (50MCG) 16GM SCH (09:59)
[2017-04-29] MEDS: BUDESONIDE (INHALATION) 0.5 MG/2 ML NEB NEB SCH ×2 (10:18→20:01)
[2017-04-29 13:00] VITALS: BP 111/69
[2017-04-29 17:00] VITALS: BP 114/68
[2017-04-29 21:33] VITALS: BP 105/86
[2017-04-29] MEDS: EZETIMIBE PO SCH (22:00)
[2017-04-29] MEDS: SIMVASTATIN PO SCH (22:00)
[2017-04-29] MEDS: traZODone HCL 50 MG TAB PO SCH (22:17)
[2017-04-30] VITALS (7 sets, daily range): BP systolic 95–116; BP diastolic 58–67
[2017-04-30] MEDS: TEMAZEPAM 15 MG CAP PO PRN (00:06)
[2017-04-30] MEDS: InsuLIN REG 1unit/0.01ml Soln (100units/ml) SC SCH ×4 (06:24→21:56)
[2017-04-30] MEDS: ACCU-CHEK COMFORT CURVE STRIP VI SCH ×4 (06:24→21:57)
[2017-04-30] MEDS: FERROUS SULFATE 325 MG TAB PO SCH ×2 (08:14→10:29)
[2017-04-30] MEDS: BUDESONIDE (INHALATION) 0.5 MG/2 ML NEB NEB SCH ×2 (09:50→22:22)
[2017-04-30] MEDS: MILK OF MAGNESIA 30ML SUSP PO SCH ×2 (10:00→21:56)
[2017-04-30] MEDS: CARVEDILOL 3.125 MG TAB PO SCH ×2 (10:00→21:55)
[2017-04-30] MEDS: FLUTICASONE PROP NASAL SPR 0.05 % (50MCG) 16GM SCH (10:00)
[2017-04-30] MEDS: glipiZIDE 5 MG TAB PO SCH ×2 (10:00→21:55)
[2017-04-30] MEDS: DOCUSATE SOD 100 MG CAP PO SCH ×2 (10:29→21:54)
[2017-04-30] MEDS: cefTRIAXone 1GM/10ml IVPUSH 10 ML IV SCH (10:29)
[2017-04-30] MEDS: CARISOPRODOL 350 MG TAB PO SCH ×2 (10:30→21:56)
[2017-04-30] MEDS: PANTOPRAZOLE 40 MG TAB PO SCH (10:30)
[2017-04-30] MEDS: SENNA 8.6 MG TAB PO SCH ×2 (10:33→21:56)
[2017-04-30] MEDS: FUROSEMIDE 20 MG TAB PO SCH (10:33)
[2017-04-30] MEDS: AMIODARONE HCL 200 MG TAB PO SCH (10:33)
[2017-04-30] MEDS: CHOLECALCIFEROL (VITD3) 1,000 UNIT TAB PO SCH (10:34)
[2017-04-30] MEDS: MULTIPLE VITAMIN TAB PO SCH (10:34)
[2017-04-30] MEDS: LORazepam 0.5 MG TAB PO SCH ×2 (10:34→21:54)
[2017-04-30] MEDS: ALLOPURINOL 300 MG TAB PO SCH (10:34)
[2017-04-30] MEDS: EZETIMIBE PO SCH (21:37)
[2017-04-30] MEDS: SIMVASTATIN PO SCH (21:37)
[2017-04-30] MEDS: traZODone HCL 50 MG TAB PO SCH (21:55)
[2017-05-01 05:57] VITALS: BP 110/73
[2017-05-01] MEDS: InsuLIN REG 1unit/0.01ml Soln (100units/ml) SC SCH ×4 (06:58→22:00)
[2017-05-01] MEDS: ACCU-CHEK COMFORT CURVE STRIP VI SCH ×4 (06:58→22:29)
[2017-05-01] MEDS: oxyCODONE ER 10 MG TAB PO PRN ×2 (07:07→22:28)
[2017-05-01 08:00] VITALS: BP 95/55
[2017-05-01] MEDS: FERROUS SULFATE 325 MG TAB PO SCH ×2 (08:00→18:12)
[2017-05-01 09:00] VITALS: BP 95/55
[2017-05-01] MEDS: BUDESONIDE (INHALATION) 0.5 MG/2 ML NEB NEB SCH ×2 (09:53→19:01)
[2017-05-01] MEDS: FLUTICASONE PROP NASAL SPR 0.05 % (50MCG) 16GM SCH (10:00)
[2017-05-01] MEDS: CARVEDILOL 3.125 MG TAB PO SCH ×2 (10:00→22:22)
[2017-05-01] MEDS: cefTRIAXone 1GM/10ml IVPUSH 10 ML IV SCH (10:19)
[2017-05-01] MEDS: MILK OF MAGNESIA 30ML SUSP PO SCH ×2 (10:19→22:21)
[2017-05-01] MEDS: ALLOPURINOL 300 MG TAB PO SCH (10:20)
[2017-05-01] MEDS: SENNA 8.6 MG TAB PO SCH ×2 (10:20→22:21)
[2017-05-01] MEDS: AMIODARONE HCL 200 MG TAB PO SCH (10:20)
[2017-05-01] MEDS: DOCUSATE SOD 100 MG CAP PO SCH ×2 (10:20→22:22)
[2017-05-01] MEDS: CHOLECALCIFEROL (VITD3) 1,000 UNIT TAB PO SCH (10:20)
[2017-05-01] MEDS: PANTOPRAZOLE 40 MG TAB PO SCH (10:20)
[2017-05-01] MEDS: MULTIPLE VITAMIN TAB PO SCH (10:21)
[2017-05-01] MEDS: FUROSEMIDE 20 MG TAB PO SCH (10:21)
[2017-05-01] MEDS: glipiZIDE 5 MG TAB PO SCH ×2 (10:21→22:22)
[2017-05-01] MEDS: LORazepam 0.5 MG TAB PO SCH ×2 (10:22→22:21)
[2017-05-01] MEDS: CARISOPRODOL 350 MG TAB PO SCH ×2 (10:22→22:21)
[2017-05-01 13:00] VITALS: BP 99/54
[2017-05-01] MEDS ORDERED: MAGNESIUM CITRATE SOLUTION 300 ML BTL PO ONE (14:00)
[2017-05-01] MEDS ORDERED: GOLYTELY 4L KIT PO ONE (14:00)
[2017-05-01 17:00] VITALS: BP 106/68
[2017-05-01 22:00] VITALS: BP 113/71
[2017-05-01] MEDS: EZETIMIBE PO SCH (22:00)
[2017-05-01] MEDS: SIMVASTATIN PO SCH (22:00)
[2017-05-01] MEDS: traZODone HCL 50 MG TAB PO SCH (22:21)
[2017-05-02] MEDS ORDERED: ONDANSETRON HCL 4 MG/2 ML VIAL IV PRN (04:30)
[2017-05-02 05:07] VITALS: BP 120/72
[2017-05-02] MEDS: CARISOPRODOL 350 MG TAB PO PRN (05:14)
[2017-05-02 05:53] LABS: Basophils # (auto) 0 uL; Basophils % (auto) 0.7 % (0.0-2.0); Eosinophils # (auto) 0.1 uL; Hemoglobin 7.6 g/dL (13.5-17.5); Lymphocytes # (auto) 0.6 uL; Monocytes # (auto) 0.5 uL; Platelet Count (auto) 127 10^3/uL (140-450)
[2017-05-02 05:55] LABS: Eosinophils % (auto) 1.7 % (0.0-7.0); Hematocrit 22.6 % (41.0-53.0); Lymphocytes % (auto) 10.4 % (10.0-50.0); Mean Corpuscular Hemoglobin 30.1 pg (28.0-32.0); Mean Corpuscular Hgb Conc. 33.7 g/dL (32.0-36.0); Mean Corpuscular Volume 89.3 fL (80.0-100.0); Monocytes % (auto) 7.9 % (0.0-12.0); Neutrophils # (auto) 4.9 uL; Neutrophils % (auto) 79.3 % (37.0-80.0); Red Blood Cells 2.53 10^6/uL (4.5-5.90); White Blood Cell 6.1 10^3/uL (4.4-10.8)
[2017-05-02 06:01] LABS: Red Cell Distribution Width 21.1 % (11.8-14.3)
[2017-05-02 06:13] LABS: BUN/Creatinine Ratio 20.4; Calcium 8.3 mg/dL (8.5-10.1); Potassium 4.5 mmol/L (3.5-5.1)
[2017-05-02] MEDS: InsuLIN REG 1unit/0.01ml Soln (100units/ml) SC SCH ×4 (06:32→22:00)
[2017-05-02] MEDS: ACCU-CHEK COMFORT CURVE STRIP VI SCH ×4 (06:32→22:06)
[2017-05-02 08:05] VITALS: BP 98/56
[2017-05-02] MEDS: MILK OF MAGNESIA 30ML SUSP PO SCH ×2 (09:41→22:22)
[2017-05-02] MEDS: cefTRIAXone 1GM/10ml IVPUSH 10 ML IV SCH ×2 (09:41→22:08)
[2017-05-02] MEDS: SENNA 8.6 MG TAB PO SCH ×2 (09:42→22:24)
[2017-05-02] MEDS: CARISOPRODOL 350 MG TAB PO SCH ×3 (09:42→22:27)
[2017-05-02] MEDS: DOCUSATE SOD 100 MG CAP PO SCH ×2 (09:42→22:23)
[2017-05-02] MEDS: MULTIPLE VITAMIN TAB PO SCH (09:42)
[2017-05-02] MEDS: CHOLECALCIFEROL (VITD3) 1,000 UNIT TAB PO SCH ×2 (09:42→22:06)
[2017-05-02] MEDS: LORazepam 0.5 MG TAB PO SCH ×2 (09:44→22:23)
[2017-05-02] MEDS: PANTOPRAZOLE 40 MG TAB PO SCH (09:44)
[2017-05-02] MEDS: FUROSEMIDE 20 MG TAB PO SCH (09:46)
[2017-05-02] MEDS: glipiZIDE 5 MG TAB PO SCH ×2 (09:46→22:53)
[2017-05-02] MEDS: AMIODARONE HCL 200 MG TAB PO SCH ×2 (09:47→22:05)
[2017-05-02] MEDS: ALLOPURINOL 300 MG TAB PO SCH ×2 (09:47→22:05)
[2017-05-02] MEDS: CARVEDILOL 3.125 MG TAB PO SCH ×4 (09:52→22:26)
[2017-05-02] MEDS: FERROUS SULFATE 325 MG TAB PO SCH ×2 (09:57→17:21)
[2017-05-02] MEDS: oxyCODONE ER 10 MG TAB PO PRN ×2 (09:57→22:53)
[2017-05-02] MEDS: FLUTICASONE PROP NASAL SPR 0.05 % (50MCG) 16GM SCH (10:15)
[2017-05-02] MEDS: BUDESONIDE (INHALATION) 0.5 MG/2 ML NEB NEB SCH ×2 (10:16→21:56)
[2017-05-02 11:51] VITALS: BP 97/65
[2017-05-02 17:15] VITALS: BP 121/70
[2017-05-02 20:00] VITALS: BP 129/72
[2017-05-02] MEDS: EZETIMIBE PO SCH (22:00)
[2017-05-02] MEDS: SIMVASTATIN PO SCH (22:00)
[2017-05-02] MEDS: TEMAZEPAM 15 MG CAP PO PRN (22:05)
[2017-05-02] MEDS: traZODone HCL 50 MG TAB PO SCH (22:24)
[2017-05-02 22:29] VITALS: BP 129/72
[2017-05-03] VITALS (7 sets, daily range): BP systolic 100–129; BP diastolic 67–74
[2017-05-03] MEDS: InsuLIN REG 1unit/0.01ml Soln (100units/ml) SC SCH ×4 (06:37→22:00)
[2017-05-03] MEDS: ACCU-CHEK COMFORT CURVE STRIP VI SCH ×4 (06:37→22:19)
[2017-05-03] MEDS: cefTRIAXone 1GM/10ml IVPUSH 10 ML IV SCH (09:11)
[2017-05-03] MEDS: FERROUS SULFATE 325 MG TAB PO SCH ×2 (09:12→17:10)
[2017-05-03] MEDS: glipiZIDE 5 MG TAB PO SCH ×2 (09:12→17:10)
[2017-05-03] MEDS: BUDESONIDE (INHALATION) 0.5 MG/2 ML NEB NEB SCH ×2 (10:28→23:18)
[2017-05-03] MEDS: MULTIPLE VITAMIN TAB PO SCH (10:31)
[2017-05-03] MEDS: FUROSEMIDE 20 MG TAB PO SCH (10:32)
[2017-05-03] MEDS: CARVEDILOL 3.125 MG TAB PO SCH ×2 (10:32→22:18)
[2017-05-03] MEDS: ALLOPURINOL 300 MG TAB PO SCH (10:33)
[2017-05-03] MEDS: AMIODARONE HCL 200 MG TAB PO SCH (10:33)
[2017-05-03] MEDS: SENNA 8.6 MG TAB PO SCH ×2 (10:34→22:18)
[2017-05-03] MEDS: LORazepam 0.5 MG TAB PO SCH ×2 (10:34→22:17)
[2017-05-03] MEDS: CHOLECALCIFEROL (VITD3) 1,000 UNIT TAB PO SCH (10:34)
[2017-05-03] MEDS: MILK OF MAGNESIA 30ML SUSP PO SCH ×2 (10:34→22:17)
[2017-05-03] MEDS: DOCUSATE SOD 100 MG CAP PO SCH ×2 (10:35→22:18)
[2017-05-03] MEDS: PANTOPRAZOLE 40 MG TAB PO SCH (10:35)
[2017-05-03] MEDS: FLUTICASONE PROP NASAL SPR 0.05 % (50MCG) 16GM SCH (10:36)
[2017-05-03] MEDS: CARISOPRODOL 350 MG TAB PO SCH ×2 (10:36→22:18)
[2017-05-03] MEDS: oxyCODONE ER 10 MG TAB PO PRN ×2 (10:48→16:59)
[2017-05-03] MEDS: SIMVASTATIN PO SCH (22:00)
[2017-05-03] MEDS: EZETIMIBE PO SCH (22:00)
[2017-05-03] MEDS: traZODone HCL 50 MG TAB PO SCH (22:17)
[2017-05-04] MEDS: oxyCODONE ER 10 MG TAB PO PRN ×4 (00:03→18:00)
[2017-05-04] MEDS: TEMAZEPAM 15 MG CAP PO PRN (00:19)
[2017-05-04 04:51] VITALS: BP 119/63
[2017-05-04] MEDS: glipiZIDE 5 MG TAB PO SCH (06:04)
[2017-05-04] MEDS: InsuLIN REG 1unit/0.01ml Soln (100units/ml) SC SCH ×2 (06:06→11:30)
[2017-05-04] MEDS: ACCU-CHEK COMFORT CURVE STRIP VI SCH ×2 (06:07→15:38)
[2017-05-04 08:33] VITALS: BP 118/75
[2017-05-04] MEDS: FERROUS SULFATE 325 MG TAB PO SCH (09:59)
[2017-05-04] MEDS: cefTRIAXone 1GM/10ml IVPUSH 10 ML IV SCH (09:59)
[2017-05-04] MEDS: DOCUSATE SOD 100 MG CAP PO SCH (10:00)
[2017-05-04] MEDS: ALLOPURINOL 300 MG TAB PO SCH (10:00)
[2017-05-04] MEDS: MILK OF MAGNESIA 30ML SUSP PO SCH (10:00)
[2017-05-04] MEDS: CHOLECALCIFEROL (VITD3) 1,000 UNIT TAB PO SCH (10:01)
[2017-05-04] MEDS: PANTOPRAZOLE 40 MG TAB PO SCH (10:01)
[2017-05-04] MEDS: MULTIPLE VITAMIN TAB PO SCH (10:01)
[2017-05-04] MEDS: SENNA 8.6 MG TAB PO SCH (10:01)
[2017-05-04] MEDS: CARISOPRODOL 350 MG TAB PO SCH (10:02)
[2017-05-04] MEDS: FUROSEMIDE 20 MG TAB PO SCH (10:04)
[2017-05-04] MEDS: LORazepam 0.5 MG TAB PO SCH (10:04)
[2017-05-04] MEDS: CARVEDILOL 3.125 MG TAB PO SCH (10:04)
[2017-05-04] MEDS: AMIODARONE HCL 200 MG TAB PO SCH (10:04)
[2017-05-04] MEDS: FLUTICASONE PROP NASAL SPR 0.05 % (50MCG) 16GM SCH (10:16)
[2017-05-04] MEDS: BUDESONIDE (INHALATION) 0.5 MG/2 ML NEB NEB SCH (10:26)
[2017-05-04 14:18] VITALS: BP 119/79
[2017-05-04 17:39] VITALS: BP 118/76
[2017-05-04] MEDS: CARISOPRODOL 350 MG TAB PO PRN (18:00)
== END 2017-05-04 18:07 | DRG 682 ==
LOC: EDBD 15:33 → ER 15:33 → TELE 15:34 → TELE-CENTR 22:12
PROVIDERS: ADMIT Specialist; ATTEND Specialist
DX: N17.9 Acute kidney failure, unspecified (principal); E43 Unspecified severe protein-calorie malnutrition; L89.154 Pressure ulcer of sacral region, stage 4; E11.22 Type 2 diabetes mellitus with diabetic chronic kidney disease; I48.91 Unspecified atrial fibrillation; I13.0 Hypertensive heart and chronic kidney disease with heart failure and stage 1 through stage 4 chronic kidney disease, or unspecified chronic kidney disease; L03.115 Cellulitis of right lower limb; I50.42 Chronic combined systolic (congestive) and diastolic (congestive) heart failure; L03.116 Cellulitis of left lower limb; R04.0 Epistaxis; L89.610 Pressure ulcer of right heel, unstageable; L89.890 Pressure ulcer of other site, unstageable; J44.9 Chronic obstructive pulmonary disease, unspecified; D50.0 Iron deficiency anemia secondary to blood loss (chronic); F17.210 Nicotine dependence, cigarettes, uncomplicated; D63.8 Anemia in other chronic diseases classified elsewhere; I25.10 Atherosclerotic heart disease of native coronary artery without angina pectoris; K59.00 Constipation, unspecified; N18.3 Chronic kidney disease, stage 3 (moderate); S81.802A Unspecified open wound, left lower leg, initial encounter; S81.801A Unspecified open wound, right lower leg, initial encounter; X58.XXXA Exposure to other specified factors, initial encounter; Z95.1 Presence of aortocoronary bypass graft; Z68.27 Body mass index [BMI] 27.0-27.9, adult; Z74.01 Bed confinement status; Z79.4 Long term (current) use of insulin; Y93.89 Activity, other specified; Y92.89 Other specified places as the place of occurrence of the external cause; Y99.8 Other external cause status
CPT/HCPCS: 30901; 36415; 71045; 76775; 80048; 80053; 81001; 82570; 82962; 83735; 84156; 84300; 85025; 85610; 85730; 87081; 94640; 94761; J1815